=== PATIENT | male | born 1935 | race Caucasian/White ===

== ENCOUNTER 2018-11-21 21:01 | Emergency (ER) | payer OTHER ==
[~2018-11-21] VITALS: Ht 170.2 cm; Wt 77.1 kg
[2018-11-21 21:11] VITALS: Ht 170.2 cm; Wt 77.1 kg
[2018-11-21 23:11] VITALS: BP 155/85
== END 2018-11-21 23:11 ==
LOC: ED 21:01
DX: S20.211A Contusion of right front wall of thorax, initial encounter (principal); S09.8XXA Other specified injuries of head, initial encounter; I10 Essential (primary) hypertension; E11.9 Type 2 diabetes mellitus without complications; F20.9 Schizophrenia, unspecified; W05.0XXA Fall from non-moving wheelchair, initial encounter; Y93.89 Activity, other specified; Y92.89 Other specified places as the place of occurrence of the external cause; Y99.8 Other external cause status

== ENCOUNTER 2018-11-23 01:40 | Inpatient (IN) | payer OTHER ==
[~2018-11-23] VITALS: Ht 172.7 cm; Wt 79.4 kg
[2018-11-23 01:49] VITALS: Ht 172.7 cm; Wt 79.4 kg
--- NOTE | 2018-11-23 01:51 | NUR ---
PT BIB PARAMEDICS FROM [facility] FOR C/O MORE ALTERED THAN USUAL AND FOR RUQ PAIN WITH N/1 EPISODE OF VOMITING. PER PARAMEDICS VOMIT WAS JUST BILE LOOKING. PT WAS HERE YESTERDAY FOR A FALL WITH A HEAD INJURY WITH A CT PERFORMED AND NO ABNORMAL FINDINGS. PT DOES NOT HAVE ANY WOUNDS TO THE HEAD THAT ARE VISIBLE. PT HAS HX OF HTN, DM, SCHIZOPHRENIA, AND DEMENTIA. PT IS SELECTIVELY ANSWERING QUESTIONS, BUT RESPONDS APPROPRIATELY. PT IS UNABLE TO TELL ME THE YEAR, BUT WHEN ASKED WHAT HIS NAME IS HE STATES "CANT YOU READ". PT WILL NOT OPEN HIS EYES BECAUSE HE SAYS "IM TRYING TO SLEEP". PT IS WEAK AND IS NOT HELPING MOVE HIS EXTREMETIES OR BODY IN ANY WAY POSSIBLE. PT HAS 2MM PUPILS WITH THE R EYE MORE RED IN THE SCLERA THAN THE LEFT. PT WAS INCONTINENT UPON TRANSFERRING HIM TO THE [facility]. PT DENIES ANY PAIN CURRENTLY. PT IS ON A 5250 AT [facility] FOR BEING AGGRESSIVE AT HIS PRISON FACILITY. PT SKIN IS WARM, DRY AND INTACT. MILD BRUISING WITH SCAB NOTED TO THE TIP OF THE NOSE THAT LOOKS ALMOST HEALED. PT CONNECTED TO CARDIAC, AND PLETH OX. PT HAS EQUAL AND UNLABORED CHEST RISE. BREATH SOUNDS ARE CLEAR BILATERALLY, BUT PT HAS NON PRODUCTIVE WET COUGH. NO ACUTE DISTRESS AT THIS TIME. MD SU AT BEDSIDE FOR MSE.
--- NOTE | 2018-11-23 01:58 | NUR ---
LAB AT BEDSIDE FOR BLOOD DRAW AND CULTURES
[2018-11-23 02:13] LABS: BASOPHIL % 0.5 % (0-2); PLATELET COUNT 284 x10^3mcL (130-400)
--- NOTE | 2018-11-23 02:14 | NUR ---
PT JUST VOMITED CLEAR/YELLOW VOMIT. SUCTION PROVIDED
[2018-11-23 02:15] LABS: RED CELL DISTRIBUTION WIDTH 15.6 % (11.5-14.5)
--- NOTE | 2018-11-23 02:15 | NUR ---
RECRUITMENT INTERNSHIP FROM [facility] AT BEDSIDE
--- NOTE | 2018-11-23 02:15 | NUR ---
REPORT GIVEN TO LORIE RUIZ MA FROM [facility] STATES THAT PT CAN BE COMBATIVE TOWARDS STAFF.
--- NOTE | 2018-11-23 02:18 | NUR ---
PATENT TAKEN TO CT VIA [facility]
[2018-11-23 02:43] LABS: CALCIUM 9.1 mg/dL (8.5-10.1); CARBON DIOXIDE 25.7 mmol/L (21-32); CHLORIDE SERUM 100 mmol/L (98-107); CREATININE SERUM 1.7 mg/dL (0.7-1.3); GLUCOSE SERUM 109 mg/dL (74-106); POTASSIUM SERUM 3.3 mmol/L (3.5-5.1); SODIUM SERUM 137 mmol/L (136-145)
[2018-11-23 02:46] LABS: ALKALINE PHOSPHATASE 68 U/L (46-116); ALT/SGPT 37 U/L (16-63); AST/SGOT 18 U/L (15-37); BILIRUBIN TOTAL 0.5 mg/dL (0.20-1.00); CHOLESTEROL 144 mg/dL (<200); HDL CHOLESTEROL 41 mg/dL (40-60); TOTAL PROTEIN, SERUM 6.3 g/dL (6.4-8.2)
[2018-11-23 02:51] LABS: ALBUMIN 2.7 g/dL (3.4-5.0)
--- NOTE | 2018-11-23 03:05 | NUR ---
PT IN POSITION OF COMFORT RESPS E/U JERKER FROM [facility] AT BEDSIDE CALL LIGHT WITHIN REACH
--- NOTE | 2018-11-23 03:08 | NUR ---
[facility] PROVIDED DIAPER REMOVED PERIANAL AND INTERGLUTEAL CLEFT REDNESS NOTED
--- NOTE | 2018-11-23 03:41 | NUR ---
PORTABLE US AT BEDSIDE
[2018-11-23] MEDS ORDERED: ARICEPT10 MG PO (03:53)
[2018-11-23] MEDS ORDERED: ZYPREXA10 M1 PO (03:53)
[2018-11-23] MEDS ORDERED: LEXAPRO5 M1 PO (03:54)
[2018-11-23] MEDS ORDERED: IND10 PO (03:55)
[2018-11-23] MEDS ORDERED: ASPIRIN81 MG PO (03:55)
[2018-11-23] MEDS ORDERED: SIMVASTATIN40 M1 PO (03:56)
[2018-11-23] MEDS ORDERED: METFORMIN HCL500 MG PO (03:56)
[2018-11-23] MEDS ORDERED: LANTUS SOLOS100 U/M1 SQ ×2 (03:57)
[2018-11-23] MEDS ORDERED: FLO4 PO (03:58)
[2018-11-23] MEDS ORDERED: AMLODIPINE BESY10 M2 PO (03:58)
[2018-11-23] MEDS ORDERED: GOOD NEIGH1200 MG/15 PO (03:59)
[2018-11-23] MEDS ORDERED: TYL650S PR (03:59)
[2018-11-23] MEDS ORDERED: ATIVAN0.5 M1 PO (04:00)
[2018-11-23] MEDS ORDERED: AMBIEN5 MG PO (04:01)
--- NOTE | 2018-11-23 04:36 | NUR ---
PT ASLEEP BUT AROUSABLE RESPS E/U
--- NOTE | 2018-11-23 05:18 | NUR ---
PT IN POSITION OF COMFORT RESPS E/U CALL LIGHT WITHIN REACH OUTSIDE SALES REPRESENTATIVE INSURANCE FROM [facility] AT BEDSIDE
[2018-11-23 05:54] LABS: CHOLESTEROL/HDL RATIO 3.5; MAGNESIUM 1.7 mg/dL (1.8-2.4); PHOSPHOROUS 4.1 mg/dL (2.5-4.9)
--- NOTE | 2018-11-23 06:30 | NUR ---
PT ASLEEP IN POSITION OF COMFORT RESPS E/U MEDICAL SSISTANT FROM [facility] AT BEDSIDE
--- NOTE | 2018-11-23 06:31 | NUR ---
MD SU MADE AWARE OF PT VITALS 250 ML NS IV BOLUS ADMIN PER MD ORDERS SEE EMAR
--- NOTE | 2018-11-23 07:45 | NUR ---
RECEIVED PATIENT FROM THE ED VIA [employer]. PATIENT IS STABLE, NO SIGNS OF APPARETN SOB, PATIENT STATES HE HAS SOME DISCOMFORT TO THE RIGHT FLANK. IV TO THE LFA INFUSING WELL AT 50ML PER HR. PATIENT IS ON ROOM AIR. INCONTINENT OF URINE AND BOWEL. PATIENT CONMES IN FROM [facility]. HE IS CONFUSED AND ALERT AND ORIENTED TO PERSON AND TIME. SAFETY PRECAUTIONS IN PLACE. SITTER AT BEDSIDE.
--- NOTE | 2018-11-23 10:00 | NUR ---
PATIENT IS RESTING IN BED HE IS ASLEEP. NO SIGNS OF PAIN OR APPARENT SOB. SAFETY PRECAUTION IN PLACE, SITTER AT BEDSIDE.
--- NOTE | 2018-11-23 11:48 | NUR ---
BRIDGE IRONWORKER AT BEDSIDE. PERFORMED GLUCOSE CHECK 110. NO COVERAGE NEEDED PER SLIDING SCALE. PATIENT IS STABLE NO SIGNS OF APPARENT SOB. SITTER AT BEDSIDE.
--- NOTE | 2018-11-23 12:30 | NUR ---
ADMINISTERED NOON MEDICATIONS. PATIENT TOLORATED WELL. THE PATIENT IS STABLE, NO SIGNS OF APPARENT SOB, PATIENT IS CONFUSED, ALERT AND ORIENTED TO PERSON. SITTER AT BEDSIDE. IV INFUSUNG WELL. NO REDNESS NOTED. PATIENT STATES SOME DISCOMFORT RIGHT FLANK. PATIENT DENIES OTHER NEEDS AT THIS TIME.
[2018-11-23 13:24] VITALS: BP 134/83
--- NOTE | 2018-11-23 14:36 | NUR ---
PATIENT IS STABLE, NO SIGNS OF APPARENT SOB, OR PAIN, PATIENT IS SLEEPING AT THIS TIME. AND SITTER AT BEDSIDE. SAFETY PRECAUTIONS IN PLACE.
--- NOTE | 2018-11-23 15:46 | NUR ---
PATIENT CLEARED BY WARD ASSISTANT FOR TRANSFER TO MED SURG. TELE REMOVED AND RETURNED TO CLUB ROOM ATTENDANT. PATIENT IS STABLE NO SIGNS OF APPARENT SOB. PATIENT DENIES PAIN AT THIS TIME.
--- NOTE | 2018-11-23 15:53 | NUR ---
PATIENT IS COMPLAINING OF INCREASING ANXIETY. WILL ADMINISTER MEDICATION PER EMAR.
[2018-11-23 16:34] VITALS: BP 135/66
[2018-11-23 17:53] VITALS: BP 120/59
--- NOTE | 2018-11-23 18:29 | NUR ---
PATIENT IS STABLE, HE IS SLEEPING NO APPARENT SIGNS OF SOB, OR PAIN, SITTER AT BEDSIDE, IV IS INFUSING WELL, NO REDNESS NOTED. SAFETY PRECAUTIONS IN PLACE. WILL ENDORSE CARE TO IMMIGRATION COORDINATOR NURSE.
--- NOTE | 2018-11-23 19:00 | NUR ---
RECEIVED PT FROM DAY SHIFT RN. PT IS RESTING. PT IS ORIENTED TO SELF AND ABLE TO FOLLOW SIMPLE COMMMANDS. NO SIGNS OF CHEST PAIN OR SHORTNESS OF BREATH ON ROOM AIR. NO USE OF ACCESSORY MUSCLES OR LABORED BREATHING ON ASSESSMENT. THERE IS A LFA 22G IV THAT IS CLEAN DRY AND INTACT AT THIS TIME. PT DOES NOT SHOW ANY COMBATIVE BEHAVIOR AT THIS TIME. SITTER IS AT THE BEDSIDE. SAFETY MEASURES ARE IN PLACE. BED IS IN THE LOWEST POSITION. WILL CONTINUE TO MONITOR.
--- NOTE | 2018-11-23 20:07 | NUR ---
RECEIVED PT FROM [address] [place] [address] NURSE. PT IS AA&O X1 AND CONFUSED AT TIMES. PT IS NOT SYMPTOMATIC FOR CHEST PAIN OR SHORTNESS OF BREATH. TELE IN PLACE. SAFETY MEASURES ARE IN PLACE. CALL LIGHT IS WITHIN REACH. WILL CONTINUE TO MONITOR.
[2018-11-23 20:44] VITALS: BP 133/65
--- NOTE | 2018-11-24 05:29 | NUR ---
PT SLEPT THROUGHOUT THE NIGHT. NO COMBATIVE BEHAVIOR NOTED. NO SIGNIFICANT CHANGES. PT IS RESTING IN BED WITH SITTER AT THE BEDSIDE. WILL ENDORSE TO DAY SHIFT RN.
[2018-11-24 06:18] VITALS: BP 126/64
--- NOTE | 2018-11-24 07:05 | NUR ---
RECEIVED BEDSIDE REPORT FROM FENCE MAKER NURSE. PATIENT IS STABLE, RESTING COMFORTABLY IN BED. NO APPARENT SIGNS OF SOB, OR PAIN AT THIS TIME. IV INFUSING WELL. NS AT 70ML /HR. NO REDNESS NOTED. PATIENT IS CONFUSED ALERT AND ORIENTED TO PERSON. SAFETY PRECAUTIONS IN PLACE. SITTER AT BEDSIDE.
[2018-11-24 07:28] LABS: BASOPHIL % 0.3 % (0-2); PLATELET COUNT 236 x10^3mcL (130-400); RED CELL DISTRIBUTION WIDTH 15.8 % (11.5-14.5)
--- NOTE | 2018-11-24 08:06 | NUR ---
PATIENT IS RESTING COMFORATBLY IN BED, ASLEEP. NO APPARENT SIGNS OF SOB, OR PAIN. SITTER AT BEDSIDE, SAFETY PRECAUTIONS IN PLACE.
--- NOTE | 2018-11-24 09:00 | NUR ---
ADMINISTERED MORNING MEDS. PATIENT TOLORATED WELL. NO APPARENT SIGNS OF SOB. PATIENT DENIES PAIN AT THIS TIME. PATIENT DENIES OTHER NEEDS AT THIS TIME. SAFETY PRECAUTIONS IN PLACE SITTER AT BEDISDE.
[2018-11-24 09:11] VITALS: BP 128/64
[2018-11-24 09:14] LABS: ALKALINE PHOSPHATASE 56 U/L (46-116); ALT/SGPT 33 U/L (16-63); AST/SGOT 16 U/L (15-37); BILIRUBIN TOTAL 0.49 mg/dL (0.20-1.00); CALCIUM 8.6 mg/dL (8.5-10.1); CARBON DIOXIDE 21.1 mmol/L (21-32); CHLORIDE SERUM 107 mmol/L (98-107); GLUCOSE SERUM 112 mg/dL (74-106); PHOSPHOROUS 3.5 mg/dL (2.5-4.9); POTASSIUM SERUM 4.9 mmol/L (3.5-5.1); SODIUM SERUM 141 mmol/L (136-145)
[2018-11-24 09:17] LABS: ALBUMIN 2.3 g/dL (3.4-5.0); TOTAL PROTEIN, SERUM 5.7 g/dL (6.4-8.2)
--- NOTE | 2018-11-24 11:13 | NUR ---
PATIENT'S CALLED FOR UPDATE. UPDATED HER ON STATUS. SHE WILL COME IN LATER TODAY.
--- NOTE | 2018-11-24 12:30 | NUR ---
SPOKE WITH NUCLEAR MEDICAINE TECH. HIDA SCAN CANNOT BE DONE UNTIL TOMORROW 11/25/18. PER DR MATI WATERS TO CHANGE DIET. CALLED MAREN SHELLEY SHE WILL PLACE ORDER TO CHANGE DIET. PER STRESS ANALYST PREP IS NPO AFTER MIDNIGHT AND NO OPIATES AFTER MIDNIGHT.
--- NOTE | 2018-11-24 13:03 | NUR ---
NOTIFIED DR THORNE THAT NUCLEAR MED CANNOT DO HIDA SCAN UNTIL TOMORROW MORNING. SHE IS AWARE THAT STATION BAGGAGE AGENT MAREN WILL CHANGE NPO STATUS TO CLEAR LIQUID UNTIL MIDNIGHT WHEN THE PATIENT MUST BE NPO AGAIN FOR HIDA SCAN.
--- NOTE | 2018-11-24 13:07 | NUR ---
ADMINISTERED NOON MEDS. PATIENT TOLORATED WELL. PATIENT IS AGITATTED BUT REORIENTED WELL. SITTER AY BEDSIDE. SAFETY PRECAUTIONS IN PLACE.
--- NOTE | 2018-11-24 13:46 | NUR ---
ADMINISTERED MEDICATION. PATIENT IS CONFUSED BUT EASILY REORIENTED. PATIENT TOLORATED MEDICATION WELL. NO APPARENT SIGNS OF SOB OR RESPIRATORY DISTRESS. PATIENT DENIED OTHER NEEDS AT THIS TIME. [facility]. SAFETY PRECATUIONS IN PLACE.
--- NOTE | 2018-11-24 15:15 | NUR ---
PATIENT IS RTESTING ION BED, HE IS CONFUSED AND NEEDS FREQUENT REORIENTING. DOES WELL AFTER REORIENTING. IV CDI, NO REDNESS NOTED. NO APPARENT SIGNS OF SOB, OR PAIN, PATIENT DENIES OTHER NEEDS AT THIS TIME. SITTER AT BEDSIDE, SAFETY PRECAUTIONS IN PLACE.
--- NOTE | 2018-11-24 17:45 | NUR ---
ADMINISTERED MEDICATIONS AND GLUCOSE CHECK. PATIENT TOLORATED WELL BUT IS CONFUSED AND NEEDS FREQUENT REORIENTING. IV CDI, NO REDNESS NOTED. SAFETY PRECAUTIONS IN PLACE. SITTER AT BEDSIDE.
--- NOTE | 2018-11-24 18:25 | NUR ---
PATIENT IS STABLE, CONFUSED AND AGITATED AT TIMES. ABLE TO REORIENT AND DOES WELL. IV IS CDI, NO REDNESS NOTED. SITTER AT BEDSIDE. FAMILY AT BEDSIDE. PATIENT IS EATING DINNER. WILL ENDORSE CARE TO INTERNAL SECURITY MANAGER NURSE.
[2018-11-24 18:49] VITALS: BP 120/57
--- NOTE | 2018-11-24 19:35 | NUR ---
RECEIVED REPORT FROM DAY SHIFT RN. PT SITTING UP IN BED. A/O TO PERSON. REORIENTED TO PLACE AND TIME. NO SOB ON ROOM AIR. BREATHING EVEN AND UNLABORED. NO C/O CHEST PAIN. NO DISTRESS NOTED. IV TO LFA, NS INFUSING. SAFETY MEASURES IN PLACE. BED IN LOWEST POSITION. SIDE RAILS UP X2. SITTER AT BEDSIDE.
[2018-11-24 22:29] VITALS: BP 116/52
--- NOTE | 2018-11-25 00:26 | NUR ---
PT RESTING WITH EYES CLOSED. NO SOB ON ROOM AIR. NO DISTRESS NOTED. SAFETY MEASURES IN PLACE. SITTER AT BEDSIDE.
--- NOTE | 2018-11-25 05:22 | NUR ---
PT SLEPT IN INTERVALS. NO SOB ON ROOM AIR. NO C/O PAIN. PT REMAINED CONFUSED. FREQUENT REORIENTATION NEEDED. PT EASILY DISTRACTED. SIMPLE COMMANDS GIVEN. SAFETY MEASURES MAINTAINED. ALL NEEDS ATTENDED TO. SITTER AT BEDSIDE.
[2018-11-25 05:43] VITALS: BP 132/64
[2018-11-25 06:17] LABS: CALCIUM 8.4 mg/dL (8.5-10.1); CARBON DIOXIDE 20.2 mmol/L (21-32); CHLORIDE SERUM 105 mmol/L (98-107); CREATININE SERUM 1.8 mg/dL (0.7-1.3); GLUCOSE SERUM 122 mg/dL (74-106); MAGNESIUM 1.6 mg/dL (1.8-2.4); POTASSIUM SERUM 3.4 mmol/L (3.5-5.1); SODIUM SERUM 138 mmol/L (136-145)
[2018-11-25 06:30] LABS: BASOPHIL % 1.4 % (0-2); PLATELET COUNT 220 x10^3mcL (130-400); RED CELL DISTRIBUTION WIDTH 15.9 % (11.5-14.5)
--- NOTE | 2018-11-25 07:40 | NUR ---
PT IS AAOX1 TO SELF. CONFUSED. FOLLOWS COMMANDS. VERBALLY RESPONSIVE. NORMAL S1S2 NOTED. RESP EVEN AND UNLABORED. LUNG SOUNDS CTA. ON R/A. ABDOMEN SOFT, NONDISTENDED, NONTENDER. BOWEL SOUNDS ACTIVE. PT HAS L GREAT TOE SCAB HOLISTIC NUTRITIONIST. L HARO SCAB ALICIA, BOTH WITH NO S/S OF INFECTION. PT HAS BLE TRACE EDEMA. PERIPHERAL PULSES PALPABLE. IV CATH TO LFA PATENT. SITE WNL. DENIES PAIN AT THIS TIME. ENTERPRISE DATA ARCHITECT AT BEDSIDE ON ONE TO ONE SUPERVISION. CALL LIGHT WITHIN REACH.
--- NOTE | 2018-11-25 09:50 | NUR ---
ROUTINE ATIVAN 5MG PO GIVEN FOR ANXIETY. PT TAKEN FOR HIDA SCAN AT THIS TIME. IV CATH N/S LOCKED.
--- NOTE | 2018-11-25 10:39 | NUR ---
ROUTINE ATIVAN 5MG PO GIVEN FOR ANXIETY. PT TAKEN FOR HIDA SCAN AT THIS TIME. IV CATH N/S LOCKED.
--- NOTE | 2018-11-25 11:52 | NUR ---
PT BACK ON UNIT, HIDA SCAN COMPLETED. IVF STARTED. SITE WNL. DENIES PAIN AT THIS TIME. SUPPORT REPRESENTATIVE IN ROOM ON ONE TO ONE SUPERVISION. CALL LIGHT WITHIN REACH.
--- NOTE | 2018-11-25 12:36 | NUR ---
MORNING HELD MEDS DUE AT THIS TIME. PT POCKETING MEDS IN MOUTH. ALL MEDS CRUSHED AND GIVEN IN APPLE SAUCE. PT DENIES PAIN AT THIS TIME. RESP EVEN AND UNLABORED. NO DISTRESS NOTED. SUPERVISOR CANVAS PRODUCTS AT BEDSIDE ON ONE TO ONE SUPERVISION. CALL LIGHT WITHIN REACH.
--- NOTE | 2018-11-25 15:40 | NUR ---
PT IS WATCHING TV. RESP EVEN AND UNLABORED. NO S/S OF DISTRESS NOTED. DENIES PAIN. CALL LIGHT WITHIN REACH. RANGER AIDE IN ROOM ON ONE TO ONE SUPERVISION.
--- NOTE | 2018-11-25 16:52 | NUR ---
ATIVAN 0.5MG PO GIVEN FOR ANXIETY AND AGITATION. PT DENIES PAIN OR DISCOMFORT. CALL LIGHT WITHIN REACH. BED IN LOW POSITION. MERCHANDISE HANDLER AT BEDSIDE ON ONE TO ONE SUPERVISION.
[2018-11-25 17:09] VITALS: BP 136/36
--- NOTE | 2018-11-25 17:43 | NUR ---
RECEIVED ORDER FROM MAREN SOARES NP. PT TO HAVE REGULAR DIET STARTING WITH DINNER ON 11/25/18. ORDER NOTED AND CARRIED OUT. PT AND PT'S FAMILY MADE AWARE.
--- NOTE | 2018-11-25 18:35 | NUR ---
PT IS AAOX1 TO SELF. RESP EVEN AND UNLABORED. NO DISTRESS NOTED. DENIES PAIN. IV CATH TO LFA PATENT WITH FLUIDS RUNNING. SITE WNL. PT ON ONE TO ONE SUPERVISION WITH C DEVELOPER AT BEDSIDE. CALL LIGHT WITHIN REACH. BED IN LOWEST POSITION. WILL ENDORSE ALL CARE TO NOC RN.
[2018-11-25 19:40] VITALS: BP 142/69
--- NOTE | 2018-11-25 19:40 | NUR ---
RECEIVED PT ASLEEP BUT EASILY AROUSABLE,ALERT TO NAME AND BIRTHDATE ONLY.DENIES ABDOMINAL PAIN.WILL START REGULAR DIET TONIGHT.NURSE AT BEDSIDE TO ASSIST WITH ADLS.BP 142/69 MMHG,HR 63.WILL CONTINUE TO MONITOR.
--- NOTE | 2018-11-26 04:42 | NUR ---
PT SLEPT WELL.DENIES ABDOMINAL PAIN ALL NIGHT.WELL TOLERATED REGULAR DIET.NURSE AT BEDSIDE TO ASSIST WITH ADLS.NO ASE NOTED FROM ZOSYN IV ATB.ALL NEEDS MET.WILL CONTINUE TO MONITOR.
[2018-11-26 06:02] VITALS: BP 148/76
[2018-11-26 06:39] LABS: BASOPHIL % 0.9 % (0-2); PLATELET COUNT 219 x10^3mcL (130-400)
[2018-11-26 06:44] LABS: CALCIUM 8.2 mg/dL (8.5-10.1); CHLORIDE SERUM 104 mmol/L (98-107); CREATININE SERUM 1.4 mg/dL (0.7-1.3); GLUCOSE SERUM 126 mg/dL (74-106); MAGNESIUM 1.8 mg/dL (1.8-2.4); POTASSIUM SERUM 3.6 mmol/L (3.5-5.1); SODIUM SERUM 137 mmol/L (136-145)
[2018-11-26 06:55] LABS: RED CELL DISTRIBUTION WIDTH 15.3 % (11.5-14.5)
--- NOTE | 2018-11-26 07:05 | NUR ---
REPORT RCD FROM JOSEPH FUENTES. PATIENT SLEEPING, WAKES EASILY, NO DISTRESS, REG RESPS. NS 70 ML/HR TO LFA WITHOUT COMPLICATIONS. SITTER AT BEDSIDE. WILL MONITOR. BED LOW.
--- NOTE | 2018-11-26 07:50 | NUR ---
SHIFT ASSESSMENT PERFORMED AND DOCUMENTED. IV TO LFA, NS 70 ML/HR WITHOUT COMPLICATIONS. PATIENT ORIENTED TO PERSON, SOMEWHAT TO SITUATION. ANSWERS SOME QUESTIONS INAPPROPRIATELY, BUT GENERALLY COOPERATIVE. REPORTS PAIN TO BACK, WILL MEDICATE PER MAR. SITTER AT BEDSIDE. PATIENT CAME FROM [facility], SCHIZOPHRENIA, DEMENTIA. WILL MONITOR.
[2018-11-26 09:32] VITALS: BP 139/60
--- NOTE | 2018-11-26 12:02 | NUR ---
PHYSICAL THERAPY, POLO, WORKING WITH PATIENT. PATIENT SITTING UP IN CHAIR. SALINE LOCKED AT THIS TIME PER POLO' REQUEST SO PATIENT CAN AMBULATE MORE EASILY. NO DISTRESS NOTED.
--- NOTE | 2018-11-26 15:58 | NUR ---
SCREEN FOR LOW CHUCK SCALE AT RISK PRESSURE ULCER INJURY PREVENTION INTERVENTIONS IN PLACE. -TURN AND REPOSITION PATIENT Q 2H OFFLOAD LEFT AND RIGHT HIPS -ASSESS AND MONITOR SKIN CONDITION DURING POSITION CHANGE -OFFLOAD BILATERAL HEELS BY PLACING PILLOWS UNDER CALVES AT ALL TIMES, UNLESS OTHERWISE CONTRAINDICATED -PRESSURE REDISTRIBUTION SURFACE THERAPY -KEEP SKIN CLEAN AND DRY AT ALL TIMES.
--- NOTE | 2018-11-26 16:21 | NUR ---
PATIENT REPOSITIONED TO LEFT SIDE WITH WEDGE AND EACH LEG SUPPORTED ON A PILLOW WITH HEELS FLOATING. PATIENT REPORTS BEING COMFORTABLE. WILL REPOSITION Q2H.
[2018-11-26 17:56] VITALS: BP 135/73
--- NOTE | 2018-11-26 19:30 | NUR ---
RECEIVED PATIENT FROM AM RN NAVNEET. SITTER BY BEDSIDE FOR PATIENT SAFETY. PATIENT IS ALERT AND ORIENTED X3 WITH EPISODES OF CONFUSION AND FORGETFULLNESS. SOME OUTBURST NOTED. ALL SAFETY MEASURES REMAIN IN PLACE. BLANCHABLE REDNESS TO SCROTUM AND COCCYX WITH Z-GUARD. SCABS TO KNEE AND NOSE ALICIA. CALL LGITH WITHIN REACH.
--- NOTE | 2018-11-26 19:36 | NUR ---
REPORT GIVEN TO JOSEPH BRIGGS. PATIENT POSITIONED WITH WEDGE UNDER LEFT HIP, PILLOWS UNDER LEGS, HEELS FLOATING. IV TO LFA INFUSING NS 70 ML/HR WITHOUT COMPLICATIONS SITTER AT BEDSIDE. REGULAR RESPS, NO DISTRESS NOTED. CARE ENDORSED.
[2018-11-26 21:02] VITALS: BP 125/62
--- NOTE | 2018-11-27 | NUR ---
PATIENT RESTING IN BED AT THIS TIME. REQUESTING FOR HOT SOUP. INFORMED PATIENT THAT SOUP IS NOT AVAILABLE AT THIS TIME AND REORIENTED PATIENT TO TIME. ASKED IF PATIENT WOULD LIKE A SLEEPING PILL TO ASSIST WITH SLEEP. PATIENT AGREED. SITTER REMAINS BY BEDSIDE. [facility].
--- NOTE | 2018-11-27 05:35 | NUR ---
PATIENT QUIETLY SLEEPING. SITTER BY BEDSIDE. PATIENT HAD MOMENTS OF OUTBURST LAST NIGHT ALONG WITH CONFUSION. REORIENTED TO PLACE, TIME AND SITUATION. ALL OTHER SAFETY MEASURES IN PLACE.
[2018-11-27 05:43] VITALS: BP 126/56
[2018-11-27 06:23] LABS: CALCIUM 8.5 mg/dL (8.5-10.1); CARBON DIOXIDE 22.3 mmol/L (21-32); CHLORIDE SERUM 106 mmol/L (98-107); CREATININE SERUM 1.6 mg/dL (0.7-1.3); GLUCOSE SERUM 111 mg/dL (74-106); POTASSIUM SERUM 3.3 mmol/L (3.5-5.1); SODIUM SERUM 135 mmol/L (136-145)
[2018-11-27 06:32] LABS: BASOPHIL % 0.5 % (0-2); PLATELET COUNT 202 x10^3mcL (130-400)
[2018-11-27 06:38] LABS: RED CELL DISTRIBUTION WIDTH 15.7 % (11.5-14.5)
--- NOTE | 2018-11-27 07:15 | NUR ---
RECEIVED PT FROM SKEIN BLEACHER, ASSESSED AND DOCUMENTED. DENIES PAIN THIS TIME. SAFTEY PRECUATIONS ARE IN PLACE.
[2018-11-27 08:34] VITALS: BP 131/66
--- NOTE | 2018-11-27 11:15 | NUR ---
INFORMED POWERTRAIN DESIGN ENGINEER MAREN ABOUT K=3.3 AND ALSO INFORMED ABOUT PT HAS ERYTHEMA TO PERIRECTAL AREA AND RECCOMENDED NYSTATIN POWDER OR OTHER MEDICINE. APPLYING ZGAURDS NOW. INFORMED POWERTRAIN DESIGN ENGINEER ABOUT PT HAD 2 LOOSE STOOL TODAY. NO NEW ORDER RECEIVED THIS TIME.
--- NOTE | 2018-11-27 14:00 | NUR ---
PT RESTING IN BED COMFORTABLY. DENIES ANY PAIN. SLEEPING THIS TIME. SITTER AT BEDSIDE.
[2018-11-27 16:22] VITALS: BP 102/54
--- NOTE | 2018-11-27 19:00 | NUR ---
PT RESTING IN BED COMFORTABLY, DENIES PAIN. SITTER AT BEDSIDE. GAVE REPORT TO GRISTMILL OPERATOR NURSE.
--- NOTE | 2018-11-27 20:41 | NUR ---
RECEIVED PATIENT IN BED AWAKE, ALERT AND ORIENTED X2 WITH NO SIGN OF ACUTE DISTRESS. BREATHING EASY AND NONLABOR WITH CLEAR BS SATTING AT 98% RA. SITTER AT BEDSIDE. ABDOMEN SOFT AND NONTENDER WITH ACTIVE BS. IV TO LAC INTACT AND INFUSING WELL. WILL CONTINUE TO MONITOR.
[2018-11-27 20:52] VITALS: BP 134/69
--- NOTE | 2018-11-28 | NUR ---
PATIENT HAVING OUTBURST SHOUTING AND YELLING, ATIVAN 0.5MG PO GIVEN PRESCRIBED. WILL CONTINUE TO MONITOR.
--- NOTE | 2018-11-28 01:06 | NUR ---
APPEARS SLEEPING WITH EYES CLOSED AFTER ATIVAN WAS GIVEN. WILL CONTINUE TO MONITOR. ITTER AT BEDSIDE.
--- NOTE | 2018-11-28 05:06 | NUR ---
SLEPT FAIRLY CHECKED AT INTERVALS FOR NEEDS AND SAFETY. ALL NEEDS ATTENDED.
[2018-11-28 05:40] VITALS: BP 133/68
--- NOTE | 2018-11-28 07:15 | NUR ---
RECEIVED PT IN BED. ASSESSED AND DOCUMENTED. DENIES PAIN THIS TIME. PT IS SLEEPING THIS TIME. SAFTEY PRECAUTIONS ARE IN PLACE. WILL MONITOR.
[2018-11-28 09:00] VITALS: BP 120/49
--- NOTE | 2018-11-28 12:29 | NUR ---
Initial Nutrition Assessment- / LILIYA VILLEGAS MR Dx: Chest pain, abd pain PMHx: HTN, DM, dementia and schizophrenia PSHx: None Labs: NA 135L, BG 111H, CREAT 1.6H, HGB 12.4H, A1C 8.4H Meds: D50%, humulin, lactinex, lantus, Lipitor, NS, zofran Diet: Regular PO Intake: (11/27) 82% average Ht: 172.72 cm (68") Wt: 79 kg (174#) BMI: 26.6 kg/m2 IBW: 154# (70 kg) %IBW: 112 UBW: unable to access Age: 82/M Food Allergies: NKFA Skin: redness to buttocks Irving: 15 Edema: none GI: last BM:11/27 Per H&P, Pt is 82yo M with PMH of HTN, DM, dementia and schizophrenia was admitted on active 5250 hold with cc of 1 day of 10/10 sharp RUQ pain. Positive associated 10/10 right chest pain and nausea with 1 episode of nonbloody vomiting. RDN visit(11/28): Pt was awake but disoriented. Pt said that he does not have any N/V/D/C at this time and has "Good" appetite. JOSE Lizarraga was sitting by bedside and said that pt ate almost 100% breakfast. Called HARDBOARD FACTORY WORKER Rajiv to discuss recommendations and change diet order to [facility]. Problem with: N: no V: no D: no C: no Problems with: Chewing/Swallowing: no Current appetite: good Recent wt change: unable to access Vitamin/Supplement use: no Special diet at home: Regular Physical activity: unable to access Education: 'Type 2 DM Medical nutrition therapy' NCM handout was provided and JOSE said that she will give it to patient's , since pt has psychological conditions. Estimated Nutritional Needs Based on actual body weight 79 kg Energy: 6780-7671 kcal/d (25-30 kcal/kg-maintenance) Protein: 63-79 g/d (0.8-1.0 g/kg)-maintenance and preservation of lean body mass Fluid: 7035-8404 ml/d (1 ml/kcal-fluid balance) or per doctor Nutrition Diagnosis 1. Altered nutrition related lab values related to endocrine dysfunction as evidenced by A1C 8.4. Intervention 1. Recommend changing current diet order to [facility] as pt has A1C of 8.4 Monitor/Evaluate Goal: PO intake at least 75% of estimated needs Monitor: PO intake, Labs, GI function F/U in 7 days as low risk 12/05
--- NOTE | 2018-11-28 12:29 | NUR ---
1. Recommend changing current diet order to [facility] as pt has A1C of 8.4
--- NOTE | 2018-11-28 14:00 | NUR ---
PT ATE LUNCH. RESTING IN BED COMFORTABLY. STABLE. SITTER AT BEDSIDE FOR SAFTEY.
--- NOTE | 2018-11-28 14:30 | NUR ---
SPOKE WITH STAFF FROM [facility] AND GAVE REPORT ABOUT PT MIKE OLIVIA REQUESTED. STAFF SAID SHE WILL REVIEW PT CHART FROM THERE AND WILL CALL BACK.
[2018-11-28 17:00] VITALS: BP 137/67
--- NOTE | 2018-11-28 17:00 | NUR ---
STAFF FROM [facility] CALLED CHARGE NURSE AND INFROMED HER ABOUT THEY WILL TAKE PT BACK. SHE INFORMED BATCH PLANT SUPERVISOR MAREN AND SHE IS PUTTING DC ORDER.
--- NOTE | 2018-11-28 17:50 | NUR ---
CALLED AND INFORMED PT'S SOBEIDA ABOUT PT IS GETTING DISCHARGED AND GOING BACK TO [facility], SHE AGREED AND RECEIVED TELEPHONE CONSENT FOR TRANSFER. PT IS STABLE. ATE 100% OF DINNER. SITTER AT BEDSIDE FOR SAFTEY AND WAITING FOR TRANSPORTATION.
[2018-11-28 18:23] VITALS: BP 137/67
--- NOTE | 2018-11-28 19:15 | NUR ---
[facility] TRANSPORTATION CAME. REPORT GIVEN AND TRANFER PACKET GIVEN. IV WAS REMOVED AND DRESSING APPLIED. PT IS STABLE. DENIES PAIN. PT TRANSFERED TO [facility] VIA [facility].
== END 2018-11-28 19:20 | disposition short-term general hospital (02) | DRG 205 ==
LOC: ED 01:40 → MU 05:24 → DU 05:24 → MU 15:46
PROVIDERS: Emergency Medicine; Internal Medicine; ADMIT Family Medicine
DX: M94.0 Chondrocostal junction syndrome [Tietze] (principal); E43 Unspecified severe protein-calorie malnutrition; N17.0 Acute kidney failure with tubular necrosis; G93.41 Metabolic encephalopathy; D68.69 Other thrombophilia; F20.0 Paranoid schizophrenia; E11.9 Type 2 diabetes mellitus without complications; E83.42 Hypomagnesemia; E87.6 Hypokalemia; N40.0 Benign prostatic hyperplasia without lower urinary tract symptoms; I10 Essential (primary) hypertension; F20.9 Schizophrenia, unspecified; F03.90 Unspecified dementia, unspecified severity, without behavioral disturbance, psychotic disturbance, mood disturbance, and anxiety; E78.5 Hyperlipidemia, unspecified; Z79.82 Long term (current) use of aspirin; Z79.4 Long term (current) use of insulin; Z68.27 Body mass index [BMI] 27.0-27.9, adult; Z79.84 Long term (current) use of oral hypoglycemic drugs
CPT/HCPCS: 78226; 82962; 97116-GP; 97530-GP; A9537; J1815; J2405; J2543; J3475; J7030; Q0092

== ENCOUNTER 2018-12-03 07:51 | Emergency (ER) | payer OTHER ==
[~2018-12-03] VITALS: Ht 167.6 cm; Wt 77.1 kg
[~2018-12-03 07:51] MED LIST: AMBIEN5 MG PO; AMLODIPINE BESY10 M2 PO; ARICEPT10 MG PO; ASPIRIN81 MG PO; ATIVAN0.5 M1 PO; FLO4 PO; GOOD NEIGH1200 MG/15 PO; IND10 PO; LANTUS SOLOS100 U/M1 SQ; LEXAPRO5 M1 PO; METFORMIN HCL500 MG PO; SIMVASTATIN40 M1 PO; TYL650S PR; ZYPREXA10 M1 PO
[2018-12-03 07:54] VITALS: Ht 167.6 cm; Wt 77.1 kg
[2018-12-03 08:36] LABS: CALCIUM 9.6 mg/dL (8.5-10.1); CARBON DIOXIDE 23.7 mmol/L (21-32); CHLORIDE SERUM 98 mmol/L (98-107); CREATININE SERUM 1.4 mg/dL (0.7-1.3); GLUCOSE SERUM 155 mg/dL (74-106); POTASSIUM SERUM 3.7 mmol/L (3.5-5.1); SODIUM SERUM 131 mmol/L (136-145)
[2018-12-03 08:39] LABS: BASOPHIL % 0.4 % (0-2); PLATELET COUNT 257 x10^3mcL (130-400)
[2018-12-03 08:41] LABS: RED CELL DISTRIBUTION WIDTH 15.5 % (11.5-14.5)
[2018-12-03 09:15] LABS: ALBUMIN 2.5 g/dL (3.4-5.0); TOTAL PROTEIN, SERUM 6.8 g/dL (6.4-8.2); URIC ACID 5.9 mg/dL (3.5-7.2)
[2018-12-03 09:16] LABS: ALKALINE PHOSPHATASE 64 U/L (46-116); ALT/SGPT 18 U/L (16-63); AST/SGOT 14 U/L (15-37); BILIRUBIN TOTAL 0.62 mg/dL (0.20-1.00); CHOLESTEROL 124 mg/dL (<200); HDL CHOLESTEROL 36 mg/dL (40-60)
[2018-12-03 12:40] VITALS: BP 115/91
== END 2018-12-03 12:40 | disposition home or self-care (01) ==
LOC: ED 07:51
PROVIDERS: Emergency Medicine
DX: R55 Syncope and collapse (principal); R53.1 Weakness; I10 Essential (primary) hypertension; E11.9 Type 2 diabetes mellitus without complications; F03.90 Unspecified dementia, unspecified severity, without behavioral disturbance, psychotic disturbance, mood disturbance, and anxiety; F20.9 Schizophrenia, unspecified
CPT/HCPCS: J7030